=== PATIENT | male | born 1975 | race Caucasian/White ===

== ENCOUNTER 2017-11-14 15:01 | Emergency (ER) | payer BC, OTHER ==
[2017-11-14 16:06] VITALS: BP 154/72
--- NOTE | 2017-11-14 16:19 | UC ---
Lower Extremity/Ankle HPI - HPI Summary HPI Summary: Pt c/o right lateral thigh pain that radiates on lateral aspect to lateral aspect of knee. Pt states that over the weekend he was doing a significant amount of physical work outside and began having right side low back pain. Pt stated that he had a deep tissue massage yesterday and woke this morning with pain in right upper, lateral thigh that radiates to right lateral side of knee and feeling of right lateral side of thigh feels "tight" . - History of Current Complaint Stated Complaint: RIGHT HIP/LEG MUSCLE PAIN Time Seen by Provider: 11/14/17 15:56 Hx Obtained From: Patient Onset/Duration: Gradual Onset Severity Initially: Mild Severity Currently: Moderate Pain Intensity: 8 Aggravating Factor(s): Standing, Other - lifting knee, bending at hip Alleviating Factor(s): Rest Able to Bear Weight: Yes - Risk Factors Gout Risk Factors: Age Over 40, Male, Obesity DVT Risk Factors: Negative - Allergies/Home Medications Allergies/Adverse Reactions: Allergies Allergy/AdvReac Type Severity Reaction Status Date / Time No Known Allergies Allergy Verified 11/14/17 16:06 PMH/Surg Hx/FS Hx/Imm Hx Previously Healthy: Yes - Surgical History Surgical History: Yes Surgery Procedure, Year, and Place: DEVIATED SEPTUM 10+ YRS AGO.T&A, HEART CATH NO STENTS - Family History Known Family History: Positive: Cardiac Disease - Social History Occupation: Employed Full-time Lives: With Family Alcohol Use: None Substance Use Type: None Smoking Status (MU): Never Smoked Tobacco Have You Smoked in the Last Year: No - Immunization History Most Recent Influenza Vaccination: n/a Most Recent Tetanus Shot: unk Most Recent Pneumonia Vaccination: n/a Review of Systems Constitutional: Negative Skin: Negative Eyes: Negative ENT: Negative Respiratory: Negative Cardiovascular: Negative Gastrointestinal: Negative Genitourinary: Negative Motor: Decreased ROM - pain with ROM right hip/thigh Neurovascular: Negative Musculoskeletal: Myalgia - right lateral thigh Neurological: Negative Psychological: Negative Is Patient Immunocompromised?: No All Other Systems Reviewed And Are Negative: Yes Physical Exam Triage Information Reviewed: Yes Appearance: Well-Appearing Vital Signs: Initial Vital Signs Temp 98.4 F 11/14/17 15:56 Pulse 106 11/14/17 15:56 Resp 18 11/14/17 15:56 BP 154/72 11/14/17 15:56 Pulse Ox 99 11/14/17 15:56 Vital Signs Reviewed: Yes Eye Exam: Normal ENT Exam: Normal Neck exam: Normal Respiratory Exam: Normal Cardiovascular Exam: Normal Musculoskeletal Exam: Other Musculoskeletal: Positive: ROM Limited @ - secondary to pain, Other: - tenderness lateral aspect of right thigh Neurological Exam: Normal Psychological Exam: Normal Skin Exam: Normal Lower Extremity Course/Dx - Differential Dx/Diagnosis Differential Diagnosis/HQI/PQRI: Bursitis, Strain Provider Diagnoses: IT Band syndrome Discharge - Sign-Out/Discharge Documenting (check all that apply): Discharge/Admit/Transfer - Discharge Plan Condition: Stable Disposition: HOME Prescriptions: Cyclobenzaprine TAB* [Flexeril 10 MG TAB*] 10 mg PO Q8H PRN #15 tab PRN Reason: Pain Ibuprofen TAB* [Motrin TAB* 600 MG] 600 mg PO Q8H PRN #15 tab PRN Reason: Pain Patient Education Materials: Ice Pack Application (ED), Iliotibial Band Syndrome (ED) Referrals: Iraj Perez DO [Primary Care Provider] - - Billing Disposition and Condition Condition: STABLE Disposition: HOME
== END 2017-11-14 16:30 | disposition home or self-care (01) ==
LOC: UCCORT 15:01
DX: M76.31 Iliotibial band syndrome, right leg (principal); X50.0XXA Overexertion from strenuous movement or load, initial encounter; Y93.9 Activity, unspecified; Y92.9 Unspecified place or not applicable
CPT/HCPCS: 99212; G0463